=== PATIENT | male | born 1950 | race Caucasian/White ===

== ENCOUNTER 2024-12-11 08:52 | Outpatient (CLI) | payer MEDICARE, BC, SELFPAY ==
--- NOTE | 2024-12-11 09:15 | MR_ITS ---
[address] [address] Phone:?[phone] Fax:?[phone] Referring Physician Information: Otilio Osuna M.D. [address] [facility], [place] [address] Phone:?[phone] Fax:?[phone] Patient:?Jose Noel D.O.B:?1950 Sex:?Male Phone:?[phone] [facility] MRN:?[id number] Exam Date:?12/11/2024 EXAM: MRI of the LEFT SHOULDER WITHOUT CONTRAST CLINICAL HISTORY: Ongoing left shoulder pain. Evaluate for rotator cuff pathology. COMPARISONS: None available. TECHNICAL: MRI sequences of the left shoulder: Axials: PD, T2 Coronals: PD, STIR, T2 Sagittals: PD, T2 SEDATION: None CONTRAST: None FINDINGS: Bones: No fracture or destructive osseous lesion. Coracoacromial arch: Acromion: No os acromiale. Type I-II acromion. Acromiohumeral space: The bony distance is unremarkable. Acromioclavicular joint: Moderate arthritic changes. Coracoclavicular ligament: The coracoclavicular ligament is intact. Rotator cuff muscles/tendons: Supraspinatus: 2.5 cm in AP dimension by 1.0 cm in transverse dimension near full-thickness bursal sided tear of the supraspinatus tendon insertion contacting the cortical insertional surface and superimposed upon mild supraspinatus tendinopathy. No muscular atrophy. Infraspinatus: Interstitial delamination within and slight tendinopathy of the infraspinatus tendon. No muscular atrophy. Teres minor: The teres minor tendon and muscle are intact. Subscapularis: 2.0 cm in craniocaudad dimension by 3.5 cm in transverse dimension near full-thickness intrasubstance/deep fiber tear of the subscapularis tendon. Slight atrophy of the subscapularis muscle. Labrum and glenohumeral joint: Superior/posterosuperior labral fraying. Physiologic amount of joint fluid. No discrete chondral defect or subchondral bone marrow edema/cystic change is seen. No convincing evidence of capsular edema or thickening although evaluation is suboptimal because of lack of joint distention. Proximal biceps tendon, long head and short heads: Rupture of the proximal long head of the biceps tendon with distal tendon retraction to the distal portion of the bicipital groove. The proximal tendon end extends into the subscapularis tendon tear. The short head is intact. Bursae: Subacromial/subdeltoid: Mild bursitis. Subcoracoid: No convincing subcoracoid bursal thickening/bursitis. IMPRESSION: 1. 2.5 x 1.0 cm near full-thickness bursal sided tear of the supraspinatus tendon insertion contacting the cortical insertional surface and superimposed upon mild supraspinatus tendinopathy. No supraspinatus muscular atrophy. 2. 2.0 x 3.5 cm near full-thickness intrasubstance/deep fiber tear of the subscapularis tendon. Slight atrophy of the subscapularis muscle. 3. Rupture of the proximal long head of the biceps tendon with distal tendon retraction to the distal portion the bicipital groove. The proximal tendon end extends into the subscapularis tendon tear. 4. Interstitial delamination within and slight tendinopathy of the infraspinatus tendon. No infraspinatus muscular atrophy. 5. Mild subacromial/subdeltoid bursitis. 6. Moderate acromioclavicular joint osteoarthritis. 7. Superior/posterosuperior labral fraying. RCB Electronically signed on 12/11/2024 11:24:00 AM by Melquiades Mcdonald M.D.
== END 2024-12-11 08:53 | disposition home or self-care (01) ==
LOC: MRI 08:56
PROVIDERS: PCP Family Medicine; Visit Provider Orthopaedic Surgery
DX: M25.512 Pain in left shoulder (principal); M75.102 Unspecified rotator cuff tear or rupture of left shoulder, not specified as traumatic; M75.52 Bursitis of left shoulder; M19.012 Primary osteoarthritis, left shoulder
CPT/HCPCS: 73221

== ENCOUNTER 2025-04-21 06:09 | Day surgery (SDC) | payer MEDICARE, BC, SELFPAY ==
[2025-04-21] VITALS (14 sets, daily range): BP systolic 93–147; BP diastolic 52–98; PULSE 46–59; RESP 14–16; TEMP 36.1–36.6; O2SAT 90–97; BMI 36.6
[2025-04-21] MEDS: LACTATED RINGERS 1000 ML 1,000 ML 100 ML IV (06:15)
[2025-04-21] MEDS: ACETAMINOPHEN 500 MG TABLET 1000 MG PO (06:30)
[2025-04-21] MEDS: OXYCODONE (CR) 10 MG TAB.ER.12H PO (06:30)
[2025-04-21] MEDS: SODIUM CHLORIDE 0.9 % (FLUSH) 10 ML SYRINGE IVF (06:52)
[2025-04-21] MEDS: MIDAZOLAM HCL 1 MG/ML inj IVP (07:10)
--- NOTE | 2025-04-21 07:20 | SUR.PREOP ---
TIME?OUT:?0710 PT/dave villegas RN/ryan landry MDA?VERIFICATION?OF?SURGICAL?SITE,?PROCEDURE,?AND?CONSENT OBTAINED?PRIOR?TO?INVASIVE?PROCEDURE.
--- NOTE | 2025-04-21 07:23 | P.ANES_ITS ---
Anesthesia Charges Start Date/Time Anesthesia Start Date: 04/21/25 Anesthesia Start Time: 07:22 Stop Date/Time Anesthesia Stop Date: 04/21/25 Anesthesia Stop Time: 10:22 Summary Extremes of Age - Over 70 or under 1: MDA Coding CPT Codes CPT Codes: ANESTH SURGERY OF SHOULDER - 66939 ([id number]) P3 - PATIENT W/SEVERE SYS DISEASE, QK - BOX STACKER 2-4 CNCRNT ANES PROC, QX - PAPER BAG MAKING MACHINIST SVC W/ MD MED DIRECTION Additional Codes: Summary - Extremes of Age - Over 70 or under 1: MDA ([id number])
--- NOTE | 2025-04-21 07:23 | P.NB_ITS ---
Nerve Block Nerve Block Time Seen by Provider: 07:15 Date Seen: 04/21/25 Type of block requested by surgeon for post-operative analgesia: supraclavicular Side: left Time out performed: Yes Verification of patient name: Yes Verification of date of : Yes Site marking: site marked Name of person performing procedure: Bar Continuous monitoring Was continuous monitoring of O2 sat, B/P, air sampling and monitoring, recorded every 15 minutes?: Yes Procedure Checklist: sterile prep, needles and gloves Ultrasound guided. Images saved: Yes Medications given in 5ml increments after negative aspiration: Ropivicaine %: 0.5 mL: 20 Needle gauge: 22 Precedex (mcg): 25 Patient tolerated procedure well: Yes Block Charges Block Charge (with Pro Fee): Brachial Plexus Use of Ultrasound Machine for Block: Yes- US Guidance/pain block
--- NOTE | 2025-04-21 07:23 | W.ANESCHARGE ---
Anesthesia Charges Start Date/Time Anesthesia Start Date: 04/21/25 Anesthesia Start Time: 07:22 Stop Date/Time Anesthesia Stop Date: 04/21/25 Anesthesia Stop Time: 10:22 Summary Extremes of Age - Over 70 or under 1: MDA Coding CPT Codes CPT Codes: ANESTH SURGERY OF SHOULDER - 49914 ([id number]) P3 - PATIENT W/SEVERE SYS DISEASE, QK - LAY OUT FORMER 2-4 CNCRNT ANES PROC, QX - CLINICAL SOCIAL WORKER SVC W/ MD MED DIRECTION Additional Codes: Summary - Extremes of Age - Over 70 or under 1: MDA ([id number])
--- NOTE | 2025-04-21 10:25 | P.ANES_ITS ---
Anesthesia Charges Start Date/Time Anesthesia Start Date: 04/21/25 Anesthesia Start Time: 07:22 Stop Date/Time Anesthesia Stop Date: 04/21/25 Anesthesia Stop Time: 10:22 Summary Extremes of Age - Over 70 or under 1: ASSESSMENT TECHNICIAN Coding CPT Codes CPT Codes: ANESTH SURGERY OF SHOULDER - 99805 ([id number]) P3 - PATIENT W/SEVERE SYS DISEASE, QK - MOTOR TUNE UP SPECIALIST 2-4 CNCRNT ANES PROC, QX - ASSESSMENT TECHNICIAN SVC W/ MD MED DIRECTION Additional Codes: Summary - Extremes of Age - Over 70 or under 1: ASSESSMENT TECHNICIAN ([id number])
--- NOTE | 2025-04-21 10:25 | W.ANESCHARGE ---
Anesthesia Charges Start Date/Time Anesthesia Start Date: 04/21/25 Anesthesia Start Time: 07:22 Stop Date/Time Anesthesia Stop Date: 04/21/25 Anesthesia Stop Time: 10:22 Summary Extremes of Age - Over 70 or under 1: SKIP LOAD DRIVER Coding CPT Codes CPT Codes: ANESTH SURGERY OF SHOULDER - 29307 ([id number]) P3 - PATIENT W/SEVERE SYS DISEASE, QK - CONTROL MANAGER 2-4 CNCRNT ANES PROC, QX - SKIP LOAD DRIVER SVC W/ MD MED DIRECTION Additional Codes: Summary - Extremes of Age - Over 70 or under 1: SKIP LOAD DRIVER ([id number])
--- NOTE | 2025-04-21 11:02 | PM.ORPRC ---
Procedure Note Date of procedure: 04/21/25 Procedure: PREOPERATIVE DIAGNOSIS: Right shoulder rotator cuff tear, AC joint arthrosis, biceps tendinopathy, labral tearing POSTOPERATIVE DIAGNOSIS: Right shoulder rotator cuff tear, AC joint arthrosis, biceps tendinopathy, labral tearing NAME OF OPERATION: Right shoulder arthroscopic limited glenohumeral joint debridement, subacromial decompression, distal clavicle excision, mini open rotator cuff repair, biceps tenodesis SURGEON: Otilio Osuna MD NAIL ARTIST: Chrissie Hill PA-C ANESTHESIA: Supraclavicular block plus general endotracheal ESTIMATED BLOOD LOSS: 5 mL COMPLICATIONS: None SPECIMENS: None DRAINS: None PREOPERATIVE ANTIBIOTICS: Ancef 3 grams INDICATIONS: The patient is a 74-year-old with a history of right shoulder pain secondary to the above diagnoses. Despite appropriate non operative management, they continue to have symptoms. Operative intervention was recommended. The risks, benefits and expected outcomes were discussed in detail. These included but were not limited to: Infection, bleeding, injury to blood vessel or nerve, venous thromboembolism. All questions were answered to their satisfaction. PROCEDURE: A supraclavicular block was placed by Anesthesia. General anesthesia was administered. The patient was placed in the high beach chair position. The right shoulder was prepped and draped in the usual sterile fashion. The glenohumeral joint was infiltrated with 20 mL of normal saline with epinephrine. The posterior portal was established, the arthroscope was introduced. The anterior portal was established, Diagnostic arthroscopy was performed with findings as follows: The anterior labrum appears markedly frayed and torn. Articular surfaces on the humeral head and glenoid are normal. There are no loose bodies. There is a full-thickness tear of the supraspinatus. The anterior and superior labrum were debrided with the shaver. The biceps appeared to be torn and retracted out of the field of view. Upper border of the subscap appeared intact. The arthroscope was placed in the subacromial space, the lateral portal was established. The Arthrex [place] was used to dissect the acromion free. The CA ligament was recessed off the anterior acromion, the AC joint was exposed. The acromioplasty was performed with the bur in the posterior portal. The bur was then placed in the lateral portal and the lateral and anterior aspect of the acromion were resected. The undersurface of the distal clavicle was resected through the lateral portal. Finally, the bur was placed in the anterior portal and the remainder of the distal clavicle was resected for a total of 10 mm. An accessory anterolateral portal was placed. The subacromial/subdeltoid bursa was aggressively debrided. There is a full-thickness tear of the supraspinatus. Arthroscopic instruments were removed. The accessory anterolateral portal was extended proximally and distally, subcutaneous dissection was taken with electrocautery to the deltoid. The deltoid was divided in line with its fibers. The static retractor was placed. The subacromial/subdeltoid bursa was debrided with the Nunez scissors. The greater tuberosity was debrided to punctate bleeding bone using the arthroscopic bur. Two Arthrex FiberTak anchors were placed just off the articular surface. Both limbs of the FiberWire and fiber tape were passed using the scorpion. A fiber link was placed in the leading edge of the rotator cuff x2. Attention was then turned to the biceps. Based on the preop MRI and our arthroscopic evaluation, we were under the impression the biceps was torn and retracted out of the field of view. We were unable to find it in the bicipital groove through our mini open incision. Therefore, we made a separate incision over the musculotendinous junction of the biceps anteriorly. Subcutaneous dissection was taken with Metzenbaum scissors to the deep fascia which was longitudinally divided. We encountered the musculotendinous junction of the long head of the biceps. We mobilized it and attempted to deliver the tendon into our distal wound. However after multiple attempts of trying to do so the biceps appeared to be hung up in the bicipital groove. Attention was therefore returned to the mini open incision. We exposed the bicipital groove more fully and noted that the biceps was subluxed medially, medial to the lesser tuberosity. It was followed up proximally, into the joint and was noted to still be attached to the supraglenoid tubercle. It was detached proximally, with the arthroscopic scissors. It was delivered into the wound and found to be markedly flattened and tendinopathic. A whipstitch was placed in good tendon distally. The proximal portion was resected. We placed an inverted suture tape in the subscap. We debrided the lesser tuberosity. We placed a margin convergence suture in the subscap. We then placed a [employer] corkscrew anchor in the lesser tuberosity, incorporating our inverted mattress sutures and the whipstitch on the biceps. This completed the upper subscap repair and biceps tenodesis, high in the bicipital groove. Attention was then returned to the supraspinatus repair. We tied the 2 central FiberWire sutures over the rotator cuff. We then proceeded with a lateral row of SwiveLock anchors x 2 crossing the FiberTape and incorporating the FiberWire and fiber link into each lateral row anchor. The suture on the eyelet of each of our lateral row anchors was passed through the leading edge of the cuff, resulting in a simple suture to each lateral row anchor. This provides an anatomic, watertight repair of the rotator cuff. There is no tension on the repair with the shoulder at 0? abduction. The wound was irrigated with normal saline off the pump. The deltoid was repaired with an 0 Vicryl in an interrupted [id number] fashion. Subcutaneous tissues were closed with a 3-0 Vicryl. Skin was closed with a 3-0 Monocryl in a subcuticular fashion. A dry dressing and sling were applied. Sponge and needle counts were correct x2. The patient tolerated the procedure well. There were no apparent complications. They were carefully transferred to the hospital bed and taken to the postanesthesia care unit in satisfactory condition. PLAN: The patient will be discharged to home. No active range of motion of the shoulder will be allowed for 6 weeks postoperatively. They can work on active range of motion of the elbow, wrist and fingers. They will follow up in the office next week for a wound check and an AP and transscapular Y-view of the shoulder prior to being seen.
== END 2025-04-21 12:01 | disposition home or self-care (01) ==
LOC: OR 06:10
PROVIDERS: PCP Family Medicine; Visit Provider Orthopaedic Surgery
PROC: (CPT 23412; principal; 2025-04-21 07:15)
DX: M75.122 Complete rotator cuff tear or rupture of left shoulder, not specified as traumatic (principal); M19.011 Primary osteoarthritis, right shoulder; M75.21 Bicipital tendinitis, right shoulder; S43.432A Superior glenoid labrum lesion of left shoulder, initial encounter; G89.18 Other acute postprocedural pain
CPT/HCPCS: 29822; 29826; 29824; 23412; 23430; 01630; 64415; 76942; 99100; A9270; C1713; J0330; J0690; J1100; J2250; J2371; J2405; J2710; J2795; J3010; J7120